=== PATIENT | male | born 1990 | race Caucasian/White ===

== ENCOUNTER 2017-03-02 21:47 | Emergency (ER) | payer OTHER ==
[~2017-03-02] VITALS: Ht 177.8 cm; Wt 90.9 kg
[2017-03-02 22:03] VITALS: BP 131/85
[2017-03-03] MEDS ORDERED: PERCOCET 5/31 TABLET PO (00:29)
[2017-03-03] MEDS ORDERED: VALIUM5 MG PO (00:29)
== END 2017-03-03 01:10 | disposition home or self-care (01) ==
LOC: EME 21:47
DX: S39.012A Strain of muscle, fascia and tendon of lower back, initial encounter (principal); X50.9XXA Other and unspecified overexertion or strenuous movements or postures, initial encounter
CPT/HCPCS: 99281; 99284; J1885